=== PATIENT | male | born 1980 | race African-American/Black ===

== ENCOUNTER 2017-07-21 04:36 | Emergency (ER) | payer OTHER ==
[2017-07-21 06:10] VITALS: BP 145/85
== END 2017-07-21 06:10 | disposition home or self-care (01) ==
LOC: ED 04:36
DX: S22.32XA Fracture of one rib, left side, initial encounter for closed fracture (principal); Z79.1 Long term (current) use of non-steroidal anti-inflammatories (NSAID); W01.0XXA Fall on same level from slipping, tripping and stumbling without subsequent striking against object, initial encounter; Y93.89 Activity, other specified; Y92.89 Other specified places as the place of occurrence of the external cause; Y99.8 Other external cause status
CPT/HCPCS: Q0092